=== PATIENT | female | born 1985 | race Caucasian/White ===

== ENCOUNTER 2016-11-02 22:39 | Emergency (ER) | payer OTHER ==
[~2016-11-02] VITALS: Ht 152.4 cm; Wt 65.0 kg
[~2016-11-02 22:39] MED LIST: Bactrim,Septra DS 80 PO; CLINDAMYCIN HC150 MG PO; CYMBALTA20 MG PO; FIORICET,ESG1 TABLET PO; KEFLEX500 MG PO; LIBRIUM25 MG PO; NORCO 5/3251 TABLET PO; PEN-VEE K,VEET500 MG PO; SUBOXONE 8 M1 TABLET PO; TRAMADOL HCL50 MG PO; ZOFRAN4 MG PO; no home meds
[2016-11-03 02:04] VITALS: BP 109/73
== END 2016-11-03 02:07 | disposition home or self-care (01) ==
LOC: EME → EDBD 22:39 → EME 11-03 02:07
DX: T40.1X4A Poisoning by heroin, undetermined, initial encounter (principal); F19.10 Other psychoactive substance abuse, uncomplicated; F17.200 Nicotine dependence, unspecified, uncomplicated
CPT/HCPCS: 71010; 80048; 83930; 84702; 85027; 93005; 99281; 99284; G0480; J7030

== ENCOUNTER 2017-03-09 21:44 | Emergency (ER) | payer OTHER ==
[~2017-03-09] VITALS: Ht 152.4 cm; Wt 61.4 kg
[2017-03-09] MEDS ORDERED: NARCAN4 MG NS (22:09)
[2017-03-09 22:23] VITALS: BP 97/69
== END 2017-03-09 22:24 | disposition home or self-care (01) ==
LOC: EME 21:44
DX: T40.1X1A Poisoning by heroin, accidental (unintentional), initial encounter (principal); F17.200 Nicotine dependence, unspecified, uncomplicated
CPT/HCPCS: 99281; 99284; J2310

== ENCOUNTER 2017-09-22 03:14 | Emergency (ER) | payer SELFPAY ==
[~2017-09-22] VITALS: Ht 152.4 cm; Wt 63.4 kg
[~2017-09-22 03:14] MED LIST changes: +NARCAN4 MG NS
[2017-09-22 04:25] LABS: ADD MIUA? YES; BILIRUBIN NEGATIVE; BLOOD NEGATIVE; COLOR AMBER ((YELLOW)); GLUCOSE (STRIP) NEGATIVE; KETONES NEGATIVE; LEUKOCYTES NEGATIVE; NITRITE NEGATIVE; PROTEIN (STRIP) 30; SPECIFIC GRAVITY 1.021 (1.000-1.030)
[2017-09-22 04:27] LABS: INTERNAL CONTROL VALID? YES
[2017-09-22 04:35] LABS: BACTERIA 3+ /HPF; EPITHELIAL CELLS 1+ /HPF; MUCUS TRACE /LPF; RED BLOOD CELLS 0-5 /HPF (0-5); WHITE BLOOD CELLS 0-5 /HPF (0-5)
[2017-09-22 06:05] VITALS: BP 122/74
[2017-09-22 14:35] LABS: CHLAMYDIA TRACHOMATIS NEGATIVE; NEISSERIA GONORRHOEAE POSITIVE
== END 2017-09-22 06:05 | disposition home or self-care (01) ==
LOC: EME 03:14
PROVIDERS: Emergency Medicine
DX: Z11.3 Encounter for screening for infections with a predominantly sexual mode of transmission (principal); F17.200 Nicotine dependence, unspecified, uncomplicated
CPT/HCPCS: 81003; 84703; 87210; 87491; 87591; 99281; 99284; J0696

== ENCOUNTER 2017-11-22 08:42 | Emergency (ER) | payer OTHER ==
[~2017-11-22] VITALS: Ht 152.4 cm; Wt 64.5 kg
[2017-11-22 09:06] LABS: HEMATOCRIT 41.9 % (36.0-46.0); HEMOGLOBIN 14.4 G/DL (11.9-15.5); MCH 34.8 PG (29.0-34.0); MCHC 34.4 G/DL (30.0-36.0); MCV 101.2 FL (83-99); PLATELET COUNT 379 K/uL (156-360); RBC DIS.WIDTH-CV 12.4 % (11.8-14.6); RBC DIS.WIDTH-SD 46.5 % (39-53); RED BLOOD COUNT 4.14 M/uL (3.80-5.20)
[2017-11-22 09:16] LABS: ALBUMIN 4.8 g/dL (3.2-4.8); CHLORIDE 104 mEq/L (99-109); POTASSIUM 3.9 mEq/L (3.7-5.4); SODIUM 137 mEq/L (136-147)
[2017-11-22 09:18] LABS: GLUCOSE 108 mg/dL (70-99); TOTAL PROTEIN 8.2 g/dL (6.4-8.3)
[2017-11-22 09:20] LABS: TOTAL BILIRUBIN 1.1 mg/dL (0.0-1.0)
[2017-11-22 09:22] LABS: ALKALINE PHOSPHATASE 72 IU/L (3-129); CREATININE 0.7 mg/dL (0.6-1.3); GFR ESTIMATE (CALCULATED) > 59 mL/min/
[2017-11-22 09:23] LABS: UREA NITROGEN (BUN) 8 mg/dL (9-23)
[2017-11-22 09:24] LABS: AST (GOT) 30 IU/L (2-34)
[2017-11-22 09:25] LABS: ALT (GPT) 17 IU/L (3-49)
[2017-11-22 09:32] LABS: QUANTITATIVE HCG < 4.0 MIU/ML
[2017-11-22 10:26] VITALS: BP 142/89
== END 2017-11-22 10:30 | disposition home or self-care (01) ==
LOC: EME 08:42
DX: N92.6 Irregular menstruation, unspecified (principal); F17.200 Nicotine dependence, unspecified, uncomplicated
CPT/HCPCS: 80053; 81003; 84702; 85027; 99281; 99284